=== PATIENT | female | born 1945 | race Caucasian/White ===

== ENCOUNTER 2017-08-29 10:16 | Inpatient (IN) | payer MEDICARE, MEDICAID ==
[~2017-08-29] VITALS: Ht 162.6 cm; Wt 77.9 kg
[2017-08-29 10:57] VITALS: BP 131/69
[2017-08-29] MEDS ORDERED: OMEP-110 PO (11:25)
[2017-08-29] MEDS ORDERED: SERT50TA5 PO (11:25)
[2017-08-29] MEDS ORDERED: HYDR-883 PO (11:25)
[2017-08-29] MEDS ORDERED: DENO60DI SQ (11:25)
[2017-08-29] MEDS ORDERED: SOLI10TA2 PO (11:25)
[2017-08-29] MEDS ORDERED: ROPI4TAB6 PO (11:25)
[2017-08-29] MEDS ORDERED: FENO160T12 PO (11:25)
[2017-08-29] MEDS ORDERED: CALC-31 PO (11:25)
[2017-08-29] MEDS ORDERED: CYAN500T42 PO (11:28)
[2017-08-29] MEDS ORDERED: MIDAZOLAM 1 MG/ML, 5ML ONE (11:36)
[2017-08-29] MEDS ORDERED: NITROGLYCERIN 5 MG/ML, 10ML ONE (11:36)
[2017-08-29] MEDS ORDERED: FENTANYL PF 100 MCG/2ML ONE (11:36)
[2017-08-29] MEDS ORDERED: VERAPAMIL 2.5 MG/ML, 2ML ONE (11:36)
[2017-08-29] MEDS ORDERED: TICAGRELOR 90 MG TABLET ONE (11:36)
[2017-08-29] MEDS ORDERED: HEPARIN 1,000 UNITS/ML, 10ML ONE (11:37)
[2017-08-29] MEDS ORDERED: LIDOCAINE/PF 1%, 30ML ONE (11:37)
[2017-08-29] MEDS ORDERED: BIVALIRUDIN 250 MG ONE (11:37)
[2017-08-29] MEDS: SODIUM CHLORIDE 0.9% 1,000 ML IV SCH (13:07)
[2017-08-29] MEDS ORDERED: OMEPRAZOLE 20 MG CAPSULE.DR PO PRN (13:30)
[2017-08-29] MEDS ORDERED: ACETAMINOPHEN 325 MG TABLET PO PRN (13:30)
[2017-08-29 16:45] VITALS: BP 113/72
[2017-08-29] MEDS: METOPROLOL TARTRATE 25 MG TABLET PO SCH (17:12)
[2017-08-29 18:29] VITALS: BP 126/69
[2017-08-29] MEDS: HYDROcodone/APAP 5/325 TABLET PO SCH (20:27)
[2017-08-29] MEDS: ATORVASTATIN 40 MG TABLET PO SCH (20:27)
[2017-08-29] MEDS: TICAGRELOR 90 MG TABLET PO SCH (20:27)
[2017-08-30 00:58] VITALS: BP 107/57
[2017-08-30] MEDS: SODIUM CHLORIDE 0.9% 1,000 ML IV SCH ×3 (01:32→20:00)
[2017-08-30 05:10] LABS: ALBUMIN 2.9 g/dL (3.4-5.0); ANION GAP 6 mmol/L (5-15); CALCIUM 8.6 mg/dL (8.5-10.1); CHLORIDE 116 mmol/L (98-107); CREATININE 1.26 mg/dL (0.55-1.02)
[2017-08-30 05:55] VITALS: BP 130/62
[2017-08-30] MEDS: METOPROLOL TARTRATE 25 MG TABLET PO SCH ×2 (06:21→17:29)
[2017-08-30 07:30] VITALS: BP 121/72
[2017-08-30] MEDS ORDERED: SERTRALINE 100MG TABLET ONE (08:27)
[2017-08-30] MEDS: ASPIRIN 81 MG TABLET EC PO SCH (08:30)
[2017-08-30] MEDS: TICAGRELOR 90 MG TABLET PO SCH ×2 (08:30→21:32)
[2017-08-30] MEDS: TEMPLATE NON-FORMULARY MED. (Solifenacin Succinate** (Vesicare**) 10 MG) PO SCH (08:33)
[2017-08-30] MEDS: FENOFIBRATE NANOCRYSTALLIZED 160 MG PO SCH (08:33)
[2017-08-30] MEDS: SERTRALINE 50MG TABLET PO SCH (08:33)
[2017-08-30] MEDS ORDERED: ROPINIROLE HCL 4 MG PO SCH (09:00)
[2017-08-30] MEDS ORDERED: SODIUM CHLORIDE 0.9% 1,000 ML IV ONE (11:14)
[2017-08-30 15:10] VITALS: BP 155/77
[2017-08-30 18:47] VITALS: BP 140/71
[2017-08-30] MEDS: HYDROcodone/APAP 5/325 TABLET PO SCH (21:32)
[2017-08-30] MEDS: ATORVASTATIN 40 MG TABLET PO SCH (21:32)
[2017-08-30] MEDS: ZOLPIDEM 5MG TABLET PO PRN (21:32)
[2017-08-31 02:00] VITALS: BP 120/71
[2017-08-31] MEDS: SODIUM CHLORIDE 0.9% 1,000 ML IV SCH (04:00)
[2017-08-31 05:26] VITALS: BP 114/58
[2017-08-31 06:16] LABS: ANION GAP 8 mmol/L (5-15); CALCIUM 9.3 mg/dL (8.5-10.1); CHLORIDE 114 mmol/L (98-107); CREATININE 1.27 mg/dL (0.55-1.02)
[2017-08-31] MEDS: ROPINIROLE 1MG TABLET PO SCH (09:03)
[2017-08-31] MEDS: METOPROLOL TARTRATE 25 MG TABLET PO SCH ×2 (09:03→17:46)
[2017-08-31] MEDS: ASPIRIN 81 MG TABLET EC PO SCH (09:03)
[2017-08-31] MEDS: TICAGRELOR 90 MG TABLET PO SCH ×2 (09:03→20:32)
[2017-08-31] MEDS: FENOFIBRATE NANOCRYSTALLIZED 160 MG PO SCH (09:04)
[2017-08-31] MEDS: SERTRALINE 50MG TABLET PO SCH (09:08)
[2017-08-31 09:21] VITALS: BP 119/73
[2017-08-31] MEDS ORDERED: FENTANYL PF 100 MCG/2ML ONE (12:52)
[2017-08-31] MEDS ORDERED: MIDAZOLAM 1 MG/ML, 5ML ONE (12:52)
[2017-08-31] MEDS ORDERED: BIVALIRUDIN 250 MG ONE (12:52)
[2017-08-31] MEDS ORDERED: VERAPAMIL 2.5 MG/ML, 2ML ONE (12:52)
[2017-08-31] MEDS ORDERED: TICAGRELOR 90 MG TABLET ONE (12:52)
[2017-08-31] MEDS ORDERED: LIDOCAINE/PF 1%, 30ML ONE (12:53)
[2017-08-31] MEDS ORDERED: HEPARIN 1,000 UNITS/ML, 10ML ONE (12:53)
[2017-08-31 13:02] VITALS: BP 118/69
[2017-08-31] MEDS ORDERED: SODIUM CHLORIDE 0.9% 1,000 ML IV SCH (13:52)
[2017-08-31 19:30] VITALS: BP 108/70
[2017-08-31] MEDS: TEMPLATE NON-FORMULARY MED. (Solifenacin Succinate** (Vesicare**) 10 MG) PO SCH (20:32)
[2017-08-31] MEDS: ATORVASTATIN 40 MG TABLET PO SCH (20:32)
[2017-08-31] MEDS: HYDROcodone/APAP 5/325 TABLET PO SCH (20:33)
[2017-08-31] MEDS: ZOLPIDEM 5MG TABLET PO PRN (20:33)
[2017-09-01 02:00] VITALS: BP 115/71
[2017-09-01] MEDS: METOPROLOL TARTRATE 25 MG TABLET PO SCH (05:11)
[2017-09-01 05:22] LABS: ALBUMIN 3.3 g/dL (3.4-5.0); ANION GAP 7 mmol/L (5-15); CALCIUM 8.9 mg/dL (8.5-10.1); CHLORIDE 112 mmol/L (98-107); CREATININE 1.28 mg/dL (0.55-1.02)
[2017-09-01 07:19] VITALS: BP 101/69
[2017-09-01 08:08] VITALS: BP 107/57
[2017-09-01] MEDS ORDERED: ATOR40TA78 PO (08:20)
[2017-09-01] MEDS ORDERED: TICA90TA PO (08:20)
[2017-09-01] MEDS ORDERED: METO25TA35 PO (08:20)
[2017-09-01] MEDS ORDERED: ASPI-621 PO (08:20)
[2017-09-01] MEDS ORDERED: SERTRALINE 100MG TABLET ONE (08:33)
[2017-09-01] MEDS: TICAGRELOR 90 MG TABLET PO SCH (08:44)
[2017-09-01] MEDS: ASPIRIN 81 MG TABLET EC PO SCH (08:44)
[2017-09-01] MEDS: ROPINIROLE 1MG TABLET PO SCH (08:46)
[2017-09-01] MEDS: SERTRALINE 50MG TABLET PO SCH (08:47)
[2017-09-01] MEDS: FENOFIBRATE NANOCRYSTALLIZED 160 MG PO SCH (08:47)
[2017-09-01] MEDS: TEMPLATE NON-FORMULARY MED. (Solifenacin Succinate** (Vesicare**) 10 MG) PO SCH (08:47)
[2017-09-28] MEDS ORDERED: TEMPLATE NON-FORMULARY MED. (Denosumab (Prolia) 60 MG) SQ SCH (13:30)
== END 2017-09-01 11:00 | disposition home or self-care (01) | DRG 246 ==
LOC: CACL 10:16 → ORIP 13:07 → 5SO 16:22 → DCLOUNGE 09-01 10:52
PROVIDERS: ADMIT Internal Medicine Cardiovascular Disease; ATTEND Internal Medicine Cardiovascular Disease
PROC: 027135Z Dilation of Coronary Artery, Two Arteries with Two Drug-eluting Intraluminal Devices, Percutaneous Approach (ICD-10-PCS; principal; 2017-08-29)
PROC: 4A023N7 Measurement of Cardiac Sampling and Pressure, Left Heart, Percutaneous Approach (ICD-10-PCS; 2017-08-29)
PROC: B2111ZZ Fluoroscopy of Multiple Coronary Arteries using Low Osmolar Contrast (ICD-10-PCS; 2017-08-29)
PROC: B2151ZZ Fluoroscopy of Left Heart using Low Osmolar Contrast (ICD-10-PCS; 2017-08-29)
PROC: 4A023N7 Measurement of Cardiac Sampling and Pressure, Left Heart, Percutaneous Approach (ICD-10-PCS; 2017-08-31)
PROC: 027034Z Dilation of Coronary Artery, One Artery with Drug-eluting Intraluminal Device, Percutaneous Approach (ICD-10-PCS; 2017-08-31)
PROC: B2111ZZ Fluoroscopy of Multiple Coronary Arteries using Low Osmolar Contrast (ICD-10-PCS; 2017-08-31)
DX: I25.10 Atherosclerotic heart disease of native coronary artery without angina pectoris (principal); E43 Unspecified severe protein-calorie malnutrition; N18.9 Chronic kidney disease, unspecified; I25.2 Old myocardial infarction; E78.5 Hyperlipidemia, unspecified; F41.9 Anxiety disorder, unspecified; M19.90 Unspecified osteoarthritis, unspecified site; G89.29 Other chronic pain; F32.9 Major depressive disorder, single episode, unspecified; E78.00 Pure hypercholesterolemia, unspecified; I12.9 Hypertensive chronic kidney disease with stage 1 through stage 4 chronic kidney disease, or unspecified chronic kidney disease; M81.0 Age-related osteoporosis without current pathological fracture; Z90.710 Acquired absence of both cervix and uterus; Z90.49 Acquired absence of other specified parts of digestive tract; Z82.3 Family history of stroke; Z82.49 Family history of ischemic heart disease and other diseases of the circulatory system
CPT/HCPCS: 36415; 80048; 82040; 85014; 85018; 93458; 93571; 93572; 99156; 99157; C1769; C1894; C9600; J0583; J1644; J2250; J3010; J3490; C1725; C1874; C1887; J7030; Q9967